=== PATIENT | female | born 1985 | race Caucasian/White ===

== ENCOUNTER 2017-07-01 15:58 | Emergency (ER) | payer BC ==
[2017-07-01 16:10] VITALS: BP 135/77
--- NOTE | 2017-07-01 16:19 | PHYS DOC ---
Adult General Chief Complaint Chief Complaint: ANKLE PROBLEM HPI HPI Patient is a 31 year old female who presents with right ankle pain. She was walking yesterday and stepped on the edge of object and twisted her ankle hurt a pop. She states she's been able to bear weight but is been sore. She denies swelling in the right side of her ankle. She denies any knee pain. Review of Systems Review of Systems Constitutional: Denies fever or chills [] Eyes: Denies change in visual acuity, redness, or eye pain [] HENT: Denies nasal congestion or sore throat [] Respiratory: Denies cough or shortness of breath [] Cardiovascular: No additional information not addressed in HPI [] GI: Denies abdominal pain, nausea, vomiting, bloody stools or diarrhea [] : Denies dysuria or hematuria [] Musculoskeletal: Denies back pain, positive for right ankle pain. Integument: Denies rash or skin lesions [] Neurologic: Denies headache, focal weakness or sensory changes [] Endocrine: Denies polyuria or polydipsia [] Physical Exam Physical Exam Constitutional: Well developed, well nourished, no acute distress, non-toxic appearance. [] HENT: Normocephalic, atraumatic, bilateral external ears normal, oropharynx moist, no oral exudates, nose normal. [] Eyes: PERRLA, EOMI, conjunctiva normal, no discharge. [] Neck: Normal range of motion, no tenderness, supple, no stridor. [] Cardiovascular:Heart rate regular rhythm, no murmur [] Lungs & Thorax: Bilateral breath sounds clear to auscultation [] Abdomen: Bowel sounds normal, soft, no tenderness, no masses, no pulsatile masses. [] Skin: Warm, dry, no erythema, no rash. [] Back: No tenderness, no CVA tenderness. [] Extremities: Tender palpation of the right ankle without any obvious deformity, soft tissue swelling over the right malleolus, no tenderness over the right knee or calf, no cyanosis, no clubbing, ROM intact, no edema. [] Neurologic: Alert and oriented X 3, normal motor function, normal sensory function, no focal deficits noted. [] Psychologic: Affect normal, judgement normal, mood normal. [] EKG EKG [] Radiology/Procedures Radiology/Procedures [] Impressions: Right ankle sprain Course & Med Decision Making Course & Med Decision Making Pertinent Labs and Imaging studies reviewed. (See chart for details) She is negative for any obvious fracture. Return precautions given. She is discharged with an air splint and Advil. Dragon Disclaimer Dragon Disclaimer This chart was dictated in whole or in part using Voice Recognition software in a busy, high-work load, and often noisy Emergency Department environment. It may contain unintended and wholly unrecognized errors or omissions. Departure Departure: Impression: Primary Impression: Ankle sprain Disposition: HOME, SELF-CARE Condition: STABLE Referrals: PCP,NO (PCP) Patient Instructions: Ankle Sprain Additional Instructions: The x-rays do not show anything fracture or broken. You wear your Aircast for the next several days. You can take Advil 600 mg every 8 hours for the next 3-4 days and use ice or heat to help with the pain and swelling. Keep your foot elevated at night to help reduce swelling. If your pain does not improve after 5 -7 days will need to have additional x-rays taken. Problem Qualifiers Primary Impression: Ankle sprain Encounter type: initial encounter Involved ligament of ankle: unspecified ligament Laterality: right Qualified Codes: S93.401A - Sprain of unspecified ligament of right ankle, initial encounter NALLELY BENSON MD Jul 01, 2017 16:19
--- NOTE | 2017-07-01 16:53 | RAD ---
EXAM: Right ankle 3 views. HISTORY: Right ankle pain after injury COMPARISON: None. FINDINGS: Three views of the right ankle are obtained. No fractures are identified. Alignment is normal. Joint spaces are maintained. There is soft tissue swelling laterally. IMPRESSION: 1. Soft tissue swelling. No fracture.
[2017-07-01] MEDS ORDERED: POTASSIUM CHLORIDE 20 MEQ TABLET.ER. PO ONE (17:00)
== END 2017-07-01 17:12 | disposition home or self-care (01) ==
LOC: ER 15:58
DX: S93.401A Sprain of unspecified ligament of right ankle, initial encounter (principal); W22.8XXA Striking against or struck by other objects, initial encounter; Y93.01 Activity, walking, marching and hiking; Y99.8 Other external cause status; Y92.89 Other specified places as the place of occurrence of the external cause
CPT/HCPCS: 29515; 73610; 99284-25